=== PATIENT | male | born 1960 | race Caucasian/White ===

== ENCOUNTER 2022-08-06 15:47 | Observation (INO) ==
[2022-08-06] MEDS ORDERED: Naloxone 0.4 MG/ML INJ IVP PRN ×4 (18:13→21:59)
[2022-08-06] MEDS ORDERED: Ketorolac 30 MG/ML VIAL IVP PRN ×4 (18:13→21:59)
[2022-08-06] MEDS ORDERED: Ondansetron 4 MG/2 ML VIAL IVP PRN ×4 (18:13→21:59)
[2022-08-06] MEDS ORDERED: Acetaminophen 325 MG TABLET PO PRN ×2 (18:13→21:59)
[2022-08-06] MEDS ORDERED: Ringers Solution, Lactated 1,000 ML IVC SCH ×2 (18:30→21:59)
[2022-08-06] MEDS ORDERED: Famotidine 20 MG/2 ML VIAL IVP ONE (19:06)
[2022-08-06] MEDS ORDERED: Acetaminophen IV 1,000 MG/100 ML BAG IVPB ONE ×2 (19:07→19:18)
[2022-08-06] MEDS ORDERED: *HR* Succinylcholine 200 MG/10 ML VIAL IVP ONE (19:15)
[2022-08-06] MEDS ORDERED: Lidocaine -MPF 2% 2 ML VIAL ONE ×2 (19:15→20:40)
[2022-08-06] MEDS ORDERED: *HR* Rocuronium Bromide 50 MG/5 ML VIAL ONE (19:15)
[2022-08-06] MEDS ORDERED: Lidocaine HCL 4 ML Topical Solution (Laryng-O-Jet Kit Sterile Pak) TP ONE (19:15)
[2022-08-06] MEDS ORDERED: Ondansetron 4 MG/2 ML VIAL ONE (19:15)
[2022-08-06] MEDS ORDERED: Famotidine 20 MG/2 ML VIAL ONE (19:18)
[2022-08-06] MEDS ORDERED: *HR* Propofol 200 MG/20 ML VIAL IVP ONE (19:23)
[2022-08-06] MEDS ORDERED: Sugammadex Sodium 200 MG/2 ML VIAL IV ONE (19:23)
[2022-08-06] MEDS ORDERED: Albuterol 2.5 MG/3 ML NEBULIZER IH ONE (19:23)
[2022-08-06] MEDS ORDERED: *HR* FentaNYL (PF) 100 MCG/2 ML VIAL ONE (19:26)
[2022-08-06] MEDS ORDERED: *HR* Dextrose 50 % in Water (Syg) 50 ML SYRINGE IVP PRN ×2 (19:39→21:59)
[2022-08-06] MEDS ORDERED: Dextrose Gel 15 GM/37.5 ML TUBE PO PRN ×4 (19:39→21:59)
[2022-08-06] MEDS ORDERED: D5% in Water 1,000 ML IVC PRN ×2 (19:39→21:59)
[2022-08-06] MEDS ORDERED: Ipratropium/Albuterol Neb 3 ML IH PRN ×2 (19:40→21:59)
[2022-08-06] MEDS ORDERED: Bupivacaine 0.5%-Epi 1:200,000 50 ML VIAL ONE (19:40)
[2022-08-06] MEDS ORDERED: Nicotine 21 MG PATCH.TD24 TD SCH (19:45)
[2022-08-06] MEDS ORDERED: Dexmedetomidine HCl 400 MCG/100 ML MLS IVC ONE (19:59)
[2022-08-06] MEDS ORDERED: Ketamine HCL *QUVA* 50mg (1mL) SYRINGE ONE (19:59)
[2022-08-06] MEDS ORDERED: Albuterol 2.5 MG/3 ML NEBULIZER IH PRN ×2 (20:07→21:59)
[2022-08-06] MEDS ORDERED: *HR* Labetalol 20 MG/4 ML SYRINGE IVP PRN ×2 (20:07→21:59)
[2022-08-06] MEDS ORDERED: *HR* Meperidine 25 MG/ML SYRINGE IVP PRN ×2 (20:07→21:59)
[2022-08-06] MEDS ORDERED: Ipratropium Neb 0.5 MG NEBULIZER IH PRN ×2 (20:07→21:59)
[2022-08-06] MEDS ORDERED: *HR* OxyCODONE Immed Rel 5 MG TABLET PO PRN ×2 (20:07→21:59)
[2022-08-06] MEDS ORDERED: *HR* FentaNYL (PF) 100 MCG/2 ML VIAL IVP PRN ×2 (20:07→21:59)
[2022-08-06] MEDS ORDERED: Acetaminophen IV 1,000 MG/100 ML BAG IVPB PRN ×2 (20:07→21:59)
[2022-08-06] MEDS ORDERED: flumazeniL 0.5 MG/5 ML VIAL IVP PRN ×2 (20:07→21:59)
[2022-08-06] MEDS ORDERED: *HR* HYDROmorphone PF 0.5 MG/0.5 ML SYRINGE IVP PRN ×2 (20:07→21:59)
[2022-08-06] MEDS ORDERED: *HR* Midazolam HCl 2 MG/2 ML VIAL ONE (20:35)
[2022-08-06] MEDS ORDERED: *HR* Labetalol 20 MG/4 ML SYRINGE IVP ONE (20:42)
[2022-08-06] MEDS ORDERED: *HR* HYDROMORPHONE 2 MG/ML VIAL ONE (20:52)
[2022-08-06] MEDS ORDERED: Piperacillin/Tazobactam 3.375 GM in 0.9 % Sodium Chloride Mini Bag 100 ML IVPB SCH (21:00)
[2022-08-06] MEDS ORDERED: Pregabalin 75 MG CAPSULE PO ONE (22:00)
[2022-08-06] MEDS ORDERED: tiZANidine 4 MG TABLET PO ONE (22:00)
[2022-08-06 22:03] VITALS: TEMP 97.7
[2022-08-07 02:52] VITALS: BP 109/64; PULSE 64; O2SAT 96
[2022-08-07] MEDS ORDERED: Piperacillin/Tazobactam 3.375 GM in 0.9 % Sodium Chloride Mini Bag 100 ML IVPB SCH (05:00)
[2022-08-07 05:53] LABS: Basophils % 0.1 %; Hematocrit 39.7 % (37.5-50.1); Hemoglobin 13.3 g/dL (12.9-16.9); Immature Granulocytes % 0.2 % (0-4); Lymphocytes # 0.5 K/mcL (0.6-4.6); Lymphocytes % 6.2 %; Mean Corpuscular HGB Conc 33.5 g/dL (31.6-35.5); Mean Corpuscular Hemoglobin 30.3 pg (28.0-33.3); Mean Corpuscular Volume 90.4 fL (83.0-100.0); Mean Platelet Volume 11.7 fL (9.4-12.4); Monocytes # 0.2 K/mcL (0.0-1.3); Monocytes % 2.6 %; Neutrophils # 7.9 K/mcL (1.6-8.9); Platelet Count 188 K/mcL (140-400); Red Blood Count 4.39 M/mcL (4.19-5.50); Red Cell Distribution Width 13.3 % (11.5-14.5); Segmented Neutrophils % 90.9 %; White Blood Count 8.7 K/mcL (4.3-11.1)
[2022-08-07 06:20] LABS: BUN/Creatinine Ratio 21 (6-26); Blood Urea Nitrogen 15 mg/dL (8-23); Calcium 8.5 mg/dL (8.6-10.3); Carbon Dioxide 26 mEq/L (23-29); Chloride 105 mEq/L (98-107); Glucose 142 mg/dL (70-105); Osmolality,Calculated 283 (280-300); Potassium 4.2 mEq/L (3.5-5.1); Sodium 135 mEq/L (136-145)
[2022-08-07] MEDS ORDERED: Nicotine 21 MG PATCH.TD24 TD SCH (09:00)
== END 2022-08-07 11:55 | disposition home or self-care (01) ==
LOC: 3ANU → SUATTDRO 17:13
PROVIDERS: ADMIT Internal Medicine; ATTEND Nurse Practitioner